=== PATIENT | female | born 1980 | race Caucasian/White ===

== ENCOUNTER 2016-10-21 13:02 | Outpatient (CLI) | payer OTHER ==
--- NOTE | 2016-10-21 13:35 | DIAGNOSTIC IMAGING REPORT ---
PROCEDURE: XR RIBS UNILATERAL - LEFT INDICATION: RIB PAIN, initial encounter TECHNIQUE: Two-views COMPARISON: None. FINDINGS: No fracture or suspicious osseous lesion. Normal underlying lungs. IMPRESSION: 1. Normal left rib series.
== END 2016-10-21 23:00 ==
LOC: XR SRH 13:02
DX: R07.81 Pleurodynia (principal)